=== PATIENT | male | born 1980 | race Two or more races ===

== ENCOUNTER 2024-04-17 17:49 | Inpatient (IN) | payer BC, OTHER ==
[2024-04-17 19:59] VITALS: BMI 19.5
[2024-04-17] MEDS ORDERED: NALOXONE (NARCAN) HCL 4 MG/0.1 ML SPRAY NS PRN (22:16)
[2024-04-17] MEDS ORDERED: NICOTINE POLACRILEX 4 MG GUM BUC PRN (22:16)
[2024-04-17] MEDS ORDERED: MAGNESIUM HYDROX 2400MG/30ML ORAL SUSPENSION 30 ML CUP PO PRN (22:16)
[2024-04-17] MEDS ORDERED: ACETAMINOPHEN 325 MG TABLET (FP) PO PRN (22:16)
[2024-04-17] MEDS ORDERED: IBUPROFEN 400 MG TABLET (FP) PO PRN (22:16)
[2024-04-17] MEDS ORDERED: BENZONATATE 200 MG CAPSULE PO PRN (22:16)
[2024-04-17] MEDS ORDERED: LOPERAMIDE HCL 2 MG CAPSULE PO PRN (22:16)
[2024-04-17] MEDS ORDERED: MAG HYDROX/AL HYDROX/SIMETH 30 ML UNIT-DOSE CUP PO PRN (22:16)
[2024-04-17] MEDS ORDERED: POLYETHYLENE GLYCOL (HEALTHYLAX) 3350 17 GM PACKET PO PRN (22:16)
[2024-04-17] MEDS ORDERED: BISMUTH SUBSALICYLATE 524 MG/30 ML PO PRN (22:16)
[2024-04-17] MEDS ORDERED: ONDANSETRON *ODT* 4 MG TABLET SL PRN (22:16)
[2024-04-17] MEDS ORDERED: NALOXONE HCL 0.4 MG/ML VIAL IM PRN (22:16)
[2024-04-17] MEDS ORDERED: guaiFENesin 600 MG TABLET.ER (FP) PO PRN (22:16)
[2024-04-17] MEDS ORDERED: DICYCLOMINE HCL 10 MG CAPSULE PO PRN (22:16)
[2024-04-17] MEDS ORDERED: BENZOCAINE/MENTHOL (CHLORASEPTIC ) LOZENGE MM PRN (22:16)
[2024-04-18] MEDS ORDERED: hydrOXYzine PAMOATE 25 MG CAPSULE (FP) PO ONE (04:55)
[2024-04-18] MEDS ORDERED: IBUPROFEN 600 MG TABLET (FP) PO ONE (04:55)
[2024-04-18] MEDS: hydrOXYzine PAMOATE 25 MG CAPSULE (FP) PO PRN (04:56)
[2024-04-18] MEDS: IBUPROFEN 600 MG TABLET (FP) PO PRN (04:57)
[2024-04-18] MEDS: METHOCARBAMOL 500 MG TABLET PO ONE (06:40)
[2024-04-18] MEDS ORDERED: ALBUTEROL SO4 HFA INHALER IH PRN (08:50)
[2024-04-18] MEDS ORDERED: methaDONE HCL 10 MG TABLET PO SCH (09:00)
[2024-04-18] MEDS ORDERED: NICOTINE 21 MG/24 HOURS TOPICAL PATCH ONE (09:13)
[2024-04-18] MEDS ORDERED: methaDONE HCL 10 MG TABLET ONE (09:13)
[2024-04-18] MEDS ORDERED: PRENATAL VITAMINS W/ FOLIC ACID TABLET (FP) PO ONE (09:13)
[2024-04-18] MEDS: NICOTINE 21 MG/24 HOURS TOPICAL PATCH TD SCH (09:21)
[2024-04-18] MEDS: methaDONE 80 MG, methaDONE 10 MG PO SCH (09:27)
[2024-04-18] MEDS: PRENATAL VITAMINS W/ FOLIC ACID TABLET (FP) PO SCH (09:28)
[2024-04-18] MEDS ORDERED: GABAPENTIN 100 MG CAPSULE ONE (09:30)
[2024-04-18] MEDS: GABAPENTIN 300 MG CAPSULE PO SCH (09:34)
[2024-04-18] MEDS ORDERED: diazePAM 5 MG TABLET ONE ×2 (09:39→12:43)
[2024-04-18] MEDS: diazePAM 5 MG TABLET PO PRN (09:42)
[2024-04-18] MEDS: diazePAM 5 MG TABLET PO SCH (12:48)
[2024-04-18 14:13] LABS: HEMATOCRIT 37.5 % (35.4-49); HEMOGLOBIN 12.7 GM/dL (11.7-16.9); MCH 30.6 pg (25.7-33.7); MEAN CELL VOLUME 90.1 fl (80-96); PLATELET COUNT 235 10^3/uL (134-434); RBC 4.16 M/mm3 (4.00-5.60); RDW 13.8 % (11.9-15.9); WHITE BLOOD COUNT 4.5 K/mm3 (4.0-10.0)
[2024-04-18 14:47] LABS: CHLORIDE 106 mmol/L (98-107); POTASSIUM 4.4 mmol/L (3.5-5.1); SODIUM 139 mmol/L (136-145)
[2024-04-18 14:53] LABS: CALCIUM 8.8 mg/dL (8.5-10.1); GLUCOSE,RANDOM 85 mg/dL (74-106)
[2024-04-18 14:54] LABS: ALBUMIN 3.4 g/dl (3.4-5.0); ANION GAP 7 mmol/L (4-13); BLOOD UREA NITROGEN 12.9 mg/dL (7-18); CO2 26 mmol/L (21-32)
[2024-04-18 14:56] LABS: SGPT/ALT 19 U/L (13-61)
[2024-04-18 14:57] LABS: CREATININE 0.7 mg/dL (0.55-1.3); SGOT/AST 14 U/L (15-37); TOT PROT 6.6 g/dl (6.4-8.2)
[2024-04-18 14:59] LABS: ALK PHOS 70 U/L (45-117); BILIRUBIN,TOTAL 0.2 mg/dL (0.2-1)
[2024-04-18] MEDS: BACLOFEN 10 MG TABLET (FP) PO SCH (16:02)
[2024-04-18] MEDS: DEXTROAMPHETAMINE/AMPHETAMINE 10 MG CAP.ER.24H PO SCH (16:02)
[2024-04-18] MEDS ORDERED: PATIENT'S OWN MEDICATION (NON-FORMULARY) (Zolpidem Tartrate [Ambien] 10 MG Tablet) PO SCH (22:00)
[2024-04-18] MEDS: SUVOREXANT 10 MG TABLET PO SCH (22:45)
[2024-04-18] MEDS ORDERED: MIRTAZAPINE 15 MG TABLET (FP) ONE (22:46)
[2024-04-18] MEDS: MIRTAZAPINE 30 MG TABLET PO SCH (22:46)
[2024-04-18] MEDS: MELATONIN 5 MG TABLETS PO SCH (22:46)
[2024-04-18] MEDS: THIAMINE 100 MG TABLET PO SCH (22:47)
[2024-04-19] MEDS: BACITRACIN 0.9 GM PACKET TP SCH (13:56)
[2024-04-19] MEDS: METHOCARBAMOL 500 MG TABLET PO SCH (13:56)
[2024-04-19] MEDS: AMMONIUM LACTATE 12% LOTION 225 GM BOTTLE TP PRN (15:19)
[2024-04-19] MEDS ORDERED: MIRTAZAPINE 15 MG TABLET (FP) ONE (22:11)
[2024-04-20] MEDS: diazePAM 5 MG TABLET PO SCH (06:18)
[2024-04-20 09:19] VITALS: RESP 18
[2024-04-20] MEDS: DEXTROAMPHETAMINE/AMPHETAMINE 10 MG CAP.ER.24H PO SCH (09:40)
[2024-04-20] MEDS: MINERAL OIL/PETROLAT/WATER TOPICAL CREAM 113 GM JAR TP SCH (11:06)
[2024-04-20] MEDS: CLOTRIMAZOLE 1% CREAM TP SCH (11:06)
[2024-04-20 13:15] VITALS: BP 120/91; PULSE 78; TEMP 97.8
[2024-04-21] MEDS ORDERED: diazePAM 5 MG TABLET PO SCH (06:00)
[2024-04-22] MEDS ORDERED: diazePAM 5 MG TABLET PO ONE (06:00)
== END 2024-04-20 16:15 | disposition left against medical advice (07) | DRG 770 ==
LOC: YASAS 17:49 → Y3N 04-18 13:49
PROVIDERS: ADMIT Allergy & Immunology; ATTEND Surgery
PROC: HZ2ZZZZ Detoxification Services for Substance Abuse Treatment (ICD-10-PCS; principal; 2024-04-18)
DX: F10.230 Alcohol dependence with withdrawal, uncomplicated (principal); F13.20 Sedative, hypnotic or anxiolytic dependence, uncomplicated; F11.20 Opioid dependence, uncomplicated; F14.20 Cocaine dependence, uncomplicated; F17.210 Nicotine dependence, cigarettes, uncomplicated; F19.24 Other psychoactive substance dependence with psychoactive substance-induced mood disorder; F64.0 Transsexualism; F31.9 Bipolar disorder, unspecified; G40.909 Epilepsy, unspecified, not intractable, without status epilepticus; I10 Essential (primary) hypertension; M54.50 Low back pain, unspecified; G89.29 Other chronic pain; Z62.810 Personal history of physical and sexual abuse in childhood; Z91.410 Personal history of adult physical and sexual abuse; Z63.8 Other specified problems related to primary support group; Z63.0 Problems in relationship with spouse or partner; Z86.19 Personal history of other infectious and parasitic diseases; Z88.8 Allergy status to other drugs, medicaments and biological substances; F91.8 Other conduct disorders; Z91.199 Patient's noncompliance with other medical treatment and regimen due to unspecified reason
CPT/HCPCS: 36415; 80053; 80305; 80307; 85027; 86593; 86780; 93005; 93010; J0475